=== PATIENT | male | born 1990 | race Caucasian/White ===

== ENCOUNTER 2022-01-21 19:45 | Emergency (ER) | payer BC ==
[~2022-01-21] VITALS: Ht 180.3 cm; Wt 81.6 kg
[2022-01-21 20:10] LABS: BASOPHIL % 0.1 % (0.0-0.2); EOSINOPHIL # 0.1 10^3/uL (0.0-0.2); EOSINOPHIL % 0.5 % (0.0-5.0); LYMPHOCYTES # 0.43 10^3/uL1 (1.0-4.8); LYMPHOCYTES % 3.5 % (24.0-44.0); MEAN CORP HGB 29.7 pg (26-34); MONOCYTES # 0.5 10^3/uL (0.3-0.8); MONOCYTES % 4.4 % (5.0-12.0); NEUTROPHIL # 11.3 10^3/uL (1.8-7.7); NEUTROPHILS % 91.4 % (41.0-85.0); PLATELET COUNT 265 10^3/uL (150-400); RED CELL DISTRIBUTION WIDTH 13.7 % (11.5-14.5)
[2022-01-21 20:25] VITALS: BP 147/82
--- NOTE | 2022-01-21 20:25 | NUR ---
ARRIVAL AMBUALTED TO ROOM. ALERT AND ORIENTED X3. GAIT STEADY. RIGHT SIDE ABDOMINAL PAIN STARTING TODAY INCREASING PAIN THE DAY WENT ON. N/V. VOMITED X1 IN THE WAITING ROOM.
[2022-01-21 20:30] LABS: CARBON DIOXIDE 28.6 mmol/L (20.0-32)
[2022-01-21 20:35] LABS: DIFFERENTIAL COMMENT NORMAL; LYMPHOCYTE 3 % (25-36); MONOCYTE 4 % (3-9); SEGMENTED NEUTROPHILS 92 % (31-76)
[2022-01-21] MEDS ORDERED: ZOFRAN ODT ONE (20:36)
[2022-01-21] MEDS ORDERED: ZOFRAN ODT SL STA (20:40)
[2022-01-21 20:47] LABS: BILIRUBIN,URINE NEGATIVE (NEGATIVE); UROBILINOGEN,URINE 0.2 E.U./dL (0.2)
[2022-01-21] MEDS ORDERED: TORADOL IV STA (20:51)
[2022-01-21] MEDS ORDERED: NS 1000ML 1,000 ML IV ONE (21:00)
[2022-01-21] MEDS ORDERED: TORADOL ONE (21:19)
[2022-01-21] MEDS ORDERED: NS 1000ML 1,000 ML ONE (21:19)
--- NOTE | 2022-01-21 21:46 | ER.PDOC ---
General Chief Complaint: Abdomen Pain Stated Complaint: N/V/D/ABD PAIN Time seen by MD: 20:12 Source: patient Exam Limitations: no limitations History of Present Illness Initial Comments 31-year-old male coming in with right-sided abdominal pain that started this morning before he went to work. Patient states is progressively worsened since then to the point where he got home he had explosive diarrhea with no blood or mucus. Patient denies any new foods, no travels, no sick contacts, no back pain. Has not been able to try anything for symptoms prior to arrival Timing/Duration: 4-6 hours, constant Severity/Quality: moderate, aching, cramping, dullness Radiation: RUQ, RLQ Associated Symptoms: nausea/vomiting Exacerbated by: upright, movements Relieved By: supine, remaining still Vital Signs First Vital Signs Date Time Temp Pulse Resp B/P (MAP) Pulse Ox O2 Delivery O2 Flow Rate FiO2 01/21/22 20:25 100.9 70 18 147/82 (103) 97 Room Air Last Vital Signs Date Time Temp Pulse Resp B/P (MAP) Pulse Ox O2 Delivery O2 Flow Rate FiO2 01/21/22 20:25 100.9 70 18 01/21/22 20:25 97 01/21/22 20:25 147/82 (103) Room Air Past Medical History Medical History: no pertinent history Surgical History: no surgical history Social History Alcohol Use: none Drug Use: none All Other Systems: Reviewed and Negative Physical Exam General Appearance: No Apparent Distress, WD/WN, Mild Distress HEENT: PERRL/EOMI, Normal ENT Inspection, Pharynx Normal Neck: Non-Tender, Full Range of Motion, Supple, Normal Inspection Respiratory: chest non-tender, lungs clear, normal breath sounds, no respiratory distress, no accessory muscle use Cardiovascular: Normal Peripheral Pulses, Regular Rate, Rhythm, No Edema, No G allop, No JVD, No Murmur Gastrointestinal: Normal Bowel Sounds, Soft, Guarding, Tenderness (epigastric ) Back: Normal Inspection, No CVA Tenderness, No Vertebral Tenderness Extremities: Normal Range of Motion, Non-Tender, Normal Inspection, No Pedal Edema, No Calf Tenderness, Normal Capillary Refill, Pelvis Stable 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, No Motor/Sensory Deficits, Alert, Normal Mood/Affect, Oriented x 3 Skin: Normal Color, Warm/Dry Lymphatic: No Adenopathy Results/Orders Results/Orders Orders - EJESIEME,SANTIAGO C DO Cbc With Auto Diff (01/21/22 19:52) Comprehensive Metabolic Panel (01/21/22 19:52) Lipase (01/21/22 19:52) Urinalysis (01/21/22 19:52) Saline Lock (01/21/22 19:52) Ondansetron (Zofran Odt) (01/21/22 20:36) Ondansetron (Zofran Odt) (01/21/22 20:40) Ct Abd/Pel With Iv Contrast (01/21/22 20:42) 0.9 % Sodium Chloride (Ns 1000ml) (01/21/22 21:00) Ketorolac Tromethamine (Toradol) (01/21/22 20:51) 0.9 % Sodium Chloride (Ns 1000ml) (01/21/22 21:19) Ketorolac Tromethamine (Toradol) (01/21/22 21:19) Vital Signs Date Time Temp Pulse Resp B/P (MAP) Pulse Ox O2 Delivery O2 Flow Rate FiO2 01/21/22 20:25 100.9 70 18 01/21/22 20:25 100.9 70 18 97 01/21/22 20:25 100.9 70 18 147/82 (103) 97 Room Air Administered Medications Medications (Trade) Dose Ordered Sig/Viola Route PRN Reason Start Time Stop Time Status Last Admin Dose Admin Ketorolac Tromethamine (Toradol) 30 mg STAT STAT IV 01/21/22 20:51 01/21/22 20:54 DC 01/21/22 21:21 30 MG Ondansetron HCl (Zofran Odt) 4 mg STAT STAT SL 01/21/22 20:40 01/21/22 20:41 DC 01/21/22 20:42 4 MG Sodium Chloride 1,000 ml @ 1,000 mls/hr Q1H ONCE IV 01/21/22 21:00 01/21/22 21:59 DC 01/21/22 21:21 1,000 MLS/HR Laboratory Tests Test 01/21/22 20:00 01/21/22 20:18 01/21/22 20:35 White Blood Count 12.3 10^3/uL (4.5-11.0) H Red Blood Count 6.07 10^6/uL (4.50-5.90) H Hemoglobin 18.0 g/dL (13.9-16.3) H Hematocrit 53.0 % (37.0-53.0) Mean Corpuscular Volume 87.3 fL (78-100) Mean Corpuscular Hemoglobin 29.7 pg (26-34) Mean Corpuscular Hemoglobin Concent 34.0 g/dL (33-36.5) Red Cell Distribution Width 13.7 % (11.5-14.5) Platelet Count 265 10^3/uL (150-400) Mean Platelet Volume 8.9 fL (7.8-11.0) Neutrophils (%) (Auto) 91.4 % (41.0-85.0) *H Lymphocytes (%) (Auto) 3.5 % (24.0-44.0) *L Monocytes (%) (Auto) 4.4 % (5.0-12.0) L Neutrophils # (Auto) 11.3 10^3/uL (1.8-7.7) H Lymphocytes # (Auto) 0.43 10^3/uL1 (1.0-4.8) L Monocytes # (Auto) 0.5 10^3/uL (0.3-0.8) Absolute Immature Granulocyte (auto 0.01 10^3 u/L (0-2) Absolute Eosinophils (auto) 0.1 10^3/uL (0.0-0.2) Immature Granulocytes % 0.10 % (0.00-0.50) Eosinophils % 0.5 % (0.0-5.0) Basophils % 0.1 % (0.0-0.2) Basophils # 0.0 10^3/uL (0.0-0.1) Sodium Level 140 mmol/L (132-145) Potassium Level 4.4 mmol/L (3.6-5.2) Chloride Level 101.0 mmol/L (96-109) Carbon Dioxide Level 28.6 mmol/L (20.0-32) Anion Gap 14.8 Blood Urea Nitrogen 14 mg/dL (7-18) Creatinine 0.98 mg/dL (0.59-1.40) Estimated GFR () 107.9 (>/=60) Est GFR (CKD-EPI)(Non-Afr [place]) 89.2 (>/=60) BUN/Creatinine Ratio 14.0 Glucose Level 112 mg/dL (70-110) H Calcium Level 9.5 mg/dL (8.4-10.5) Total Bilirubin 0.7 mg/dL (0.2-1.0) Aspartate Amino Transferase (AST) 23 U/L (0-35) Alanine Aminotransferase (ALT) 39 U/L (12-78) Alkaline Phosphatase 61 U/L (50-136) Total Protein 8.6 g/dL (6.4-8.2) H Albumin 4.7 g/dL (3.4-5.0) Globulin 3.9 Albumin/Globulin Ratio 1.205 Lipase 96 U/L (114-286) L Differential Total Cells Counted 100 #CELLS Segmented Neutrophils 92 % (31-76) H Lymphocytes 3 % (25-36) L Monocytes 4 % (3-9) Differential Comment NORMAL Atypical Lymphocytes 1 % Platelet Estimate ADEQUATE Blood Morphology Comment NORMAL MORPHOLOGY Urine Collection Type CCMS Urine Color YELLOW Urine Appearance CLEAR Urine Bilirubin NEGATIVE (NEGATIVE) Urine Ketones 1+ (NEGATIVE) H Urine Specific [place] 1.020 (1.005-1.030) Urine pH 6.5 (4.5-8.0) Urine Protein NEGATIVE (NEGATIVE) Urine Urobilinogen 0.2 E.U./dL (0.2) Urine Nitrate NEGATIVE (NEGATIVE) Urine Leukocyte Esterase NEGATIVE (NEGATIVE) Urine Glucose (Auto)(UA) NEGATIVE (NEGATIVE) Urine Blood NEGATIVE (NEGATIVE) Progress Progress 31-year-old male presenting with nausea, vomiting and diarrhea. Patient was worked up and found to have leukocytosis, but CT did not reveal any acute process. ER DEPART Departure Time of Disposition: 22:51 Disposition: 01 HOME / SELF CARE / HOMELESS Impression: Primary Impression: Nausea & vomiting Additional Impression: Diarrhea Condition: Stable Patient Instructions: Abdominal Pain Referrals: NILDA FIORE MD PRIMARY CARE PROVIDER Additional Instructions: Follow-up with your primary care doctor in 3 to 5 days to see if you are improving. Take all antibiotics as scheduled, add probiotics, return to the ED for any new or worsening symptoms Duration or Time Spent with Pa: 65 min Problem Qualifiers SANTIAGO BLACK DO Jan 21, 2022 21:46
--- NOTE | 2022-01-21 22:39 | DIREP ---
PROCEDURE:CT ABDOMEN/PELVIS W/ CONTRAST COMPARISON:None. INDICATIONS:RLQ abd pain TECHNIQUE:Axial images were created through the abdomen and pelvis with non-ionic intravenous contrast material. No oral contrast was administered. Sagittal and coronal reconstructions were performed from source images. FINDINGS: LUNG BASES:Small hiatus hernia. Lung bases are clear. LIVER:Normal. No significant liver lesions are identified. BILIARY:Normal. No visible dilatation or calcification. PANCREAS:Normal. No lesion, fluid collection, ductal dilatation, or atrophy. SPLEEN:Normal. No enlargement or focal lesion. ADRENALS:Normal. No mass or enlargement. URINARY TRACT:Normal. No focal lesions or hydronephrosis. AORTA/VASCULAR:Normal. No aneurysm. RETROPERITONEUM:Normal. No mass or adenopathy. BOWEL/MESENTERY:Normal. There is no intestinal obstruction, free fluid, free air or mesenteric inflammatory changes. ABDOMINAL WALL:Normal. No mass or hernia. PELVIC ORGANS:Normal. No visible mass. Pelvic organs appropriate for patient age. BONES:Normal for age. No bony lesion or acute fracture. OTHER:Negative. CONCLUSION:No acute abnormality. Small hiatus hernia. Dictated by: Rickey Zelaya MD on 01/21/2022 at 10:36 PM
== END 2022-01-21 23:05 | disposition home or self-care (01) ==
LOC: ER 19:45
DX: R11.2 Nausea with vomiting, unspecified (principal); R19.7 Diarrhea, unspecified; R10.11 Right upper quadrant pain; R10.31 Right lower quadrant pain
CPT/HCPCS: 36415; 74177; 80053; 81003; 83690; 85025; 96361; 96374; 99284; J1885; J7030; Q9965